=== PATIENT | female | born 1945 | race Caucasian/White ===

== ENCOUNTER → 2017-05-20 | Outpatient (CLI) | payer MEDICARE, OTHER ==
[~2017-05-20] MED LIST: AC325T PO; ACID1TAB PO; ARIP2TAB10 PO; ASPI1TAB22 PO; ASPI325T32 PO; Acetaminophen PO; BETA1TAB13 PO; BIOFREEZE TP; CALC-149 PO; CALC-793 PO; CALC-80 PO; CEPH-38 PO; CHOL100011 PO; CHOL10002 PO; CHOL10003 PO; CIPR500T78 PO; CITA-105 PO; CTLP20T PO; CYCL-97 PO; CYCL10TA45 PO; CYCL10TA9 PO; DILT240C PO; DULO30CA PO; Diphenhydramine Hcl PO; ESTR-7 PO; ESTR1TAB66 PO; FAMO20TA13 PO; FAMO20TA5 PO; FISH OIL 1,2001 EAC1 PO; FLC100T1 PO; FNT25TD TD; HCT25T PO; HDR2T PO; K-VANCO1PB IV; KCL10CCR PO; LEVO125T PO; LEVO175T3 PO; LORA-407 PO; LORA2TAB PO; LOSA100T16 PO; LOSA100T7 PO; LOSA25TA15 PO; LRZ1T PO; LVT.15T PO; Losartan Potassium PO; MAGN400O7 PO; MAGN400T6 PO; MELO-195 PO; MENT118G TOP; METO50TA7 PO; MS15TCR PO; MTP100TCR PO; MTP25TSR PO; MULT-608 PO; MULT-856 PO; Multivitamins/Minerals Therap PO; NF-TYLARTH PO; NST15PW TOP; Non Medication Item TP; OMG1KC PO; OXYC-12 PO; OXYC-188 PO; OXYC1TAB25 PO; PANT40SU PO; PANT40TA PO; PIRO20CA2 PO; PNT40TEC PO; POLY17PO23 PO; SENN1TAB76 PO; SIMV20TA3 PO; SMV20T PO; TMZP15C PO; VIT1CAPS25 PO; VIT1CAPS8 PO; [UNRECOGNIZED DRUG - CODE] PO
--- NOTE | 2017-05-20 13:31 | Diagnostic Imaging Report ---
PROCEDURE: US Thyroid. TECHNIQUE: Multiple real-time grayscale images were obtained of the thyroid in various projections. INDICATION: Hypothyroidism. COMPARISON: 08/16/2011. FINDINGS: The right thyroid lobe is diminutive at 1.8 x 0.8 x 0.6 cm. It is unchanged in size from prior. Left thyroid lobe is small but slightly larger at 2.5 x 0.8 x 0.8 cm. This is also unchanged. Color Doppler blood flow is unremarkable. There is no solid or cystic thyroidal mass. The residual parenchymal echotexture although somewhat heterogeneous unchanged. IMPRESSION: A small thyroid, nonfocal, without mass or change from prior. Dictated by: Dictated on workstation # [id number]
== END ==
LOC: RAD 10:48
PROVIDERS: ATTEND Family Medicine
DX: E03.9 Hypothyroidism, unspecified (principal); R13.10 Dysphagia, unspecified
CPT/HCPCS: 76536

== ENCOUNTER → 2018-05-07 | Outpatient (CLI) | payer MEDICARE, OTHER ==
--- NOTE | 2018-05-07 21:33 | Diagnostic Imaging Report ---
INDICATION: Screening. The current study was also evaluated with a Computer Aided Detection (CAD) system. Comparison made with prior examination 02/11/2017 back through 01/24/2012 3-D tomosynthesis was performed and reviewed. FINDINGS: There are scattered residual fibroglandular densities bilaterally. There are few benign type calcifications. There is no dominant mass, spiculated lesion or suspicious calcification identified. Skin nipples and axilla are unremarkable. IMPRESSION: Benign. ACR BI-RADS Category 2: Benign findings. Result letter will be mailed to the patient. Note: At least 10% of breast cancer is not imaged by mammography. Dictated by: Dictated on workstation # [id number]
== END ==
LOC: RAD 11:18
PROVIDERS: ATTEND Nurse Practitioner Family
DX: Z12.31 Encounter for screening mammogram for malignant neoplasm of breast (principal)
CPT/HCPCS: 77067

== ENCOUNTER → 2018-10-01 | Outpatient (CLI) | payer MEDICARE, OTHER ==
--- NOTE | 2018-10-01 14:17 | Diagnostic Imaging Report ---
PROCEDURE: CT abdomen and pelvis without contrast. TECHNIQUE: Multiple contiguous axial images were obtained through the abdomen and pelvis without the use of intravenous contrast. Auto Exposure Controls were utilized during the CT exam to meet ALARA standards for radiation dose reduction. INDICATION: Abnormal liver function test. COMPARISON: Comparison is made to examination of 06/15/2013. FINDINGS: There is an approximately 0.5 cm subpleural nodule in the lateral left lower lobe. This may have been present on the previous study. Moderate hiatal hernia is again demonstrated. Unenhanced images of the liver and spleen reveal no focal abnormality. There is no biliary ductal dilatation. Fatty changes of the pancreatic head are again noted. There is no evidence of splenic, adrenal gland, or renal abnormality seen on the noncontrasted images. There does appear to be diffuse thinning of renal cortices. There is mild aortoiliac atherosclerotic calcification. No free fluid is seen within the abdomen or pelvis. The appendix has a normal appearance. There is no evidence of localized inflammation or organized fluid collection. There is mild diffuse lumbar spondylosis. IMPRESSION: 1. 0.5 cm subpleural nodule in the left lung base is likely benign, having been present on the previous study. Clinical correlation would be of use. 2. Otherwise, there is mild further loss of renal parenchyma without significant change in moderate hiatal hernia. Otherwise, no acute abnormality is detected. Dictated by: Dictated on workstation # [id number]
== END ==
LOC: RAD 13:43
PROVIDERS: ATTEND Nurse Practitioner Family
DX: N28.89 Other specified disorders of kidney and ureter (principal); K44.9 Diaphragmatic hernia without obstruction or gangrene; R91.1 Solitary pulmonary nodule; R94.5 Abnormal results of liver function studies
CPT/HCPCS: 74176

== ENCOUNTER → 2019-05-11 | Outpatient (CLI) | payer MEDICARE, OTHER ==
--- NOTE | 2019-05-11 13:18 | Diagnostic Imaging Report ---
INDICATION: Routine screening. Comparison is made with prior mammogram from 05/07/2018 and 02/11/2017. 2-D and 3-D bilateral screening mammography was performed with CAD. Scattered fibroglandular densities are identified bilaterally. The parenchymal pattern is stable. No mass or malignant appearing microcalcifications are seen. Axillae are unremarkable. IMPRESSION: BI-RADS Category 1. No mammographic features suspicious for malignancy are identified. ACR BI-RADS Category 1: Negative. Result letter will be mailed to the patient. Note: At least 10% of breast cancer is not imaged by mammography. Dictated by: Dictated on workstation # [id number]
== END ==
LOC: RAD 11:24
PROVIDERS: ATTEND Nurse Practitioner Family
DX: Z12.31 Encounter for screening mammogram for malignant neoplasm of breast (principal)
CPT/HCPCS: 77067

== ENCOUNTER → 2020-05-12 | Outpatient (CLI) | payer MEDICARE, OTHER ==
--- NOTE | 2020-05-15 10:34 | Diagnostic Imaging Report ---
INDICATION: Routine screening. Comparison is made with prior mammogram from 05/11/2019 and 05/07/2018. 2-D and 3-D bilateral screening mammography was performed with CAD. Scattered fibroglandular densities are identified bilaterally. Scattered benign calcifications are noted bilaterally. No mass or malignant appearing microcalcifications are seen. Axillae are unremarkable. IMPRESSION: BI-RADS Category 2 No mammographic features suspicious for malignancy are identified. ACR BI-RADS Category 2: Benign findings. Result letter will be mailed to the patient. Note: At least 10% of breast cancer is not imaged by mammography. Dictated by: Dictated on workstation # [id number]
== END ==
LOC: RAD 15:00
PROVIDERS: ATTEND Nurse Practitioner Family
DX: Z12.31 Encounter for screening mammogram for malignant neoplasm of breast (principal)
CPT/HCPCS: 77063; 77067

== ENCOUNTER → 2021-06-12 | Outpatient (CLI) | payer MEDICARE, OTHER ==
--- NOTE | 2021-06-12 15:11 | Diagnostic Imaging Report ---
INDICATION: Routine screening. COMPARISON is made with prior mammograms 05/12/2020 and 05/11/2019. 2-D and 3-D bilateral screening mammography was performed with CAD. Scattered fibroglandular densities are identified bilaterally. There are benign calcifications in both breasts. No dominant mass or malignant-appearing microcalcifications are seen. Axillae are unremarkable. IMPRESSION: BI-RADS Category 2. No mammographic features suspicious for malignancy are identified. ACR BI-RADS Category 2: Benign findings. Result letter will be mailed to the patient. Note: At least 10% of breast cancer is not imaged by mammography. Dictated by: Dictated on workstation # [id number]
== END ==
LOC: RAD 13:30
PROVIDERS: ATTEND Nurse Practitioner Family
DX: Z12.31 Encounter for screening mammogram for malignant neoplasm of breast (principal)
CPT/HCPCS: 77063; 77067

== ENCOUNTER → 2021-11-21 | Outpatient (CLI) | payer MEDICARE, OTHER ==
[~2021-11-21] VITALS: Ht 167.6 cm; Wt 89.4 kg
[~2021-11-21] MED LIST changes: +ALPR1TAB7 PO; +CETI10TA24 PO; +ESCI-2 PO; +HYOS0.1283 SL; +LEVO112C4 PO; +SUCR1TAB36 PO
== END | disposition home or self-care (01) ==
LOC: PREOP 05:51
PROVIDERS: ATTEND Surgery
DX: Z01.818 Encounter for other preprocedural examination (principal); K21.9 Gastro-esophageal reflux disease without esophagitis

== ENCOUNTER 2021-11-27 10:51 | Day surgery (SDC) | payer MEDICARE, OTHER ==
[~2021-11-27] VITALS: Ht 167 cm; Wt 89.4 kg
[~2021-11-27 10:51] MED LIST changes: -SUCR1TAB36 PO
[2021-11-27] MEDS ORDERED: LACTATED RINGERS 1,000 ML IV STA (11:02)
[2021-11-27] MEDS ORDERED: HURRICAINE EXT TUBE (BENZOCAINE) XX PRN (11:15)
[2021-11-27 11:30] VITALS: BP 112/70
[2021-11-27] MEDS ORDERED: proPOfol 200 MG/20 ML (DIPRIVAN) VIAL IV ONE (13:56)
--- NOTE | 2021-11-27 13:57 | Progress Note-Pre Operative ---
Pre-Operative Progress Note Date of Available H&P: Nov 19, 2021 Date H&P Reviewed: Nov 27, 2021 Time H&P Reviewed: 13:56 History & Physical: H&P Reviewed, Patient Examed, No changes noted Pre-Operative Diagnosis: gerd dysphagia LATRELL BILLY DO Nov 27, 2021 13:57
--- NOTE | 2021-11-27 14:09 | Progress Note-Post Operative ---
Post-Operative Progess Note Surgeon (s)/Casino Cage Manager (s) Surgeon LATRELL BILLY DO Casino Cage Manager: na Pre-Operative Diagnosis gerd dysphagia Post-Operative Diagnosis hiatal hernia, gastric polyps Procedure & Operative Findings Date of Procedure 11/27/21 Procedure Performed/Findings egd c biopsies Anesthesia Type per ice cream dispenser Estimated Blood Loss Estimated blood loss (mL): none Specimens/Packing Specimens Removed antrum, ge LATRELL BILLY DO Nov 27, 2021 14:09
[2021-11-27] MEDS ORDERED: SUCR1TAB36 PO (14:10)
--- NOTE | 2021-11-27 14:11 | Discharge Inst-Simple/Standard ---
Discharge Inst-Standard Patient Instructions/Follow Up Plan of Care/Instructions/FU: 2 weeks Stacey Call office to schedule eosophogram prior to visit. Activity as Tolerated: Yes Discharge Diet: Regular Diet LATRELL BILLY DO Nov 27, 2021 14:11
[2021-11-27 14:14] VITALS: BP 143/59
--- NOTE | 2021-11-27 14:15 | Anesthesia-General Post-Op ---
MAC Patient Condition Mental Status/LOC: Same as Preop Cardiovascular: Satisfactory Nausea/Vomiting: Absent Respiratory: Satisfactory Pain: Controlled Complications: Absent Post Op Complications Complications None Follow Up Care/Instructions Patient Instructions None needed. Anesthesiology Discharge Order Discharge Order Patient is doing well, no complaints, stable vital signs, no apparent adverse anesthesia problems. No complications reported per nursing. AMANDEEP CHRISTIANSON CRNA Nov 27, 2021 14:15
[2021-11-27 14:20] VITALS: BP 119/61
[2021-11-27 14:50] VITALS: BP 114/58
[2021-11-27 15:20] VITALS: BP 114/58
--- NOTE | 2021-11-27 18:33 | OPERATIVE REPORT ---
DATE OF SERVICE: 11/27/2021 PREOPERATIVE DIAGNOSES: Gastroesophageal reflux disease, dysphagia. POSTOPERATIVE DIAGNOSES: Gastric polyps, hiatal hernia, moderate to large. SURGEON: Latrell Ibarra DO ANESTHESIA: Per COMMUNITY ACTION WORKER. PROCEDURE: EGD with biopsies. ESTIMATED BLOOD LOSS: None. COMPLICATIONS: None. INDICATIONS: The patient is a 76-year-old female with GERD symptoms and dysphagia symptoms. She understands risks and benefits of procedure and wishes to proceed. Consent was signed in the chart. DESCRIPTION OF PROCEDURE: The patient was taken to the endoscopy suite, placed in left lateral recumbent position. Timeout was performed. Scope was inserted in mouth, down the esophagus, stomach and into the duodenum without difficulty. There were no polyps, masses or ulcerations within the duodenum. Scope was slowly retracted back into the stomach where it was further insufflated. Multiple gastric polyps present. Biopsy of the antrum was obtained. No masses or ulcerations. Scope was retroflexed noting a moderate to large hiatal hernia, no other pathology. Scope was returned to its normal position, slowly withdrawn to distal esophagus. Biopsy of GE junction was obtained. No polyps, masses or ulcerations. Scope was slowly retracted back until completely removed. The patient tolerated the procedure well without any complications. She was taken to recovery room in stable condition. RECOMMENDATIONS: The patient will be started on Carafate 1 gram four times a day, so we can get her symptoms under control. We will get an esophagram to further evaluate swallow function as the esophagus appears to be widely patent. Further recommendations pending results. Job ID: [id number] DocumentID: [id number] Dictated Date: 11/27/2021 14:16:46 Inspector Canned Food Reconditioning Date: 11/27/2021 18:33:02 Dictated By: LATRELL IBARRA DO
== END 2021-11-27 15:20 | disposition home or self-care (01) ==
LOC: ENDO 10:51
PROVIDERS: ATTEND Surgery
DX: K31.7 Polyp of stomach and duodenum (principal); K44.9 Diaphragmatic hernia without obstruction or gangrene; K21.9 Gastro-esophageal reflux disease without esophagitis; K29.50 Unspecified chronic gastritis without bleeding; Z91.048 Other nonmedicinal substance allergy status; Z88.8 Allergy status to other drugs, medicaments and biological substances; Z87.891 Personal history of nicotine dependence; Z79.899 Other long term (current) drug therapy
CPT/HCPCS: 88305

== ENCOUNTER → 2021-11-30 | Outpatient (CLI) | payer MEDICARE, OTHER ==
[~2021-11-30] MED LIST changes: +BARIUM for suspension 96% w/w (Vanilla Silq Medium Density) PO ONE; +BARIUM for suspension 98% w/w (Vanilla Silq High Density) PO ONE; +SUCR1TAB36 PO
--- NOTE | 2021-11-30 13:31 | Diagnostic Imaging Report ---
Indication: Dysphagia. The patient ingested effervescent crystals as well as thin and thick barium and imaging of the esophagus was performed in multiple obliquities. Erp Developer radiograph of the chest is unremarkable. Esophagus has a smooth contour. No discrete mass or stricture is identified. There is a moderate-sized sliding-type hiatal hernia. Moderate gastroesophageal reflux was also demonstrated on multiple occasions. IMPRESSION: Moderate-sized hiatal hernia and gastroesophageal reflux. Study is otherwise unremarkable. Dictated by: Dictated on workstation # [id number]
== END ==
LOC: RAD 11:15
PROVIDERS: ATTEND Surgery
DX: K44.9 Diaphragmatic hernia without obstruction or gangrene (principal); K21.9 Gastro-esophageal reflux disease without esophagitis
CPT/HCPCS: 74220

== ENCOUNTER → 2022-08-05 | Outpatient (CLI) | payer MEDICARE, OTHER ==
[~2022-08-05] MED LIST changes: -BARIUM for suspension 96% w/w (Vanilla Silq Medium Density) PO ONE; -BARIUM for suspension 98% w/w (Vanilla Silq High Density) PO ONE
--- NOTE | 2022-08-06 19:00 | Diagnostic Imaging Report ---
Indication: Routine screening. Comparison is made with prior mammograms 06/12/2021 and 05/12/2020. 2-D and 3-D bilateral screening mammography was performed with CAD. Scattered fibroglandular densities are identified bilaterally. The parenchymal pattern is stable. There are benign calcifications bilaterally. No mass or malignant-appearing microcalcifications are seen. Axillae are unremarkable. IMPRESSION: BI-RADS Category 2 No mammographic features suspicious for malignancy are identified. ACR BI-RADS Category 2: Benign findings. Result letter will be mailed to the patient. Note: At least 10% of breast cancer is not imaged by mammography. Dictated by: Dictated on workstation # [id number]
== END ==
LOC: RAD 14:45
PROVIDERS: ATTEND Family Medicine
DX: Z12.31 Encounter for screening mammogram for malignant neoplasm of breast (principal)
CPT/HCPCS: 77063; 77067